=== PATIENT | female | born 1995 | race Caucasian/White ===

== ENCOUNTER 2018-12-12 18:28 | Emergency (ER) | payer OTHER ==
[~2018-12-12] VITALS: Ht 154.9 cm; Wt 81.6 kg
[2018-12-12] MEDS ORDERED: HYDROcodone/APAP 7.5 MG/325 MG (LORTAB, LORCET PLUS) TABLET PO ONE (19:15)
--- NOTE | 2018-12-12 19:52 | Diagnostic Imaging Report ---
INDICATION: Injury, elbow pain. EXAMINATION: Right elbow at 7:05 p.m. Three views were obtained. COMPARISON: There are no prior studies available for comparison. FINDINGS: There is a transverse slightly displaced fracture of the proximal radius. The distal fracture fragment is displaced medially by half the width of the radial shaft. There is also an orthopedic plate and screw fixation device along the medial aspect of the distal fracture fragment. This is a sequela of prior trauma. There are also transverse essentially nondisplaced fractures of the proximal ulna. There is also an orthopedic plate and screw fixation device along the posterior medial aspect of the proximal/mid ulna. There is a linear lucency along the lateral cortex of the distal humerus on the AP view. This is not seen on the other views and unlikely to represent a fracture. The posterior fat-pad of the elbow joint is not elevated. IMPRESSION: 1. There are fractures of the proximal radius and ulna. The fractures are proximal to the orthopedic hardware involving the radius and ulna from the previous traumatic episode. 2. There is no acute bony abnormality identified otherwise. Dictated by: Dictated on workstation # [id number]
[2018-12-12] MEDS ORDERED: RX-HYDROCODONE/APAP 5/325 MG #4 TAB PK PO PRN (20:15)
[2018-12-12] MEDS ORDERED: ACHD5005 PO (20:27)
--- NOTE | 2018-12-12 20:27 | ED Upper Extremity ---
General Chief Complaint: Upper Extremity Stated Complaint: RT FORARM PAIN Nursing Triage Note: PT REPORTS WAS WALKING AROUND A KIDDIE ET TRIPPED WHILE GETTING OUT FALLING ONTO RT ARM. C/O PAIN BELOW ELBOW Nursing Sepsis Screen: No Definite Risk Source: patient Exam Limitations: no limitations History of Present Illness Date Seen by Provider: Dec 12, 2018 Time Seen by Provider: 18:49 Initial Comments 23-year-old female who presents to the emergency room with complaints of right elbow pain after falling onto the right arm after tripping in a kiddie pool. She reports history of fractures to the radius and ulnar of the right upper extremity in the past. Onset: just prior to arrival Pain/Injury Location: right forearm Method of Injury: fell Modifying Factors: Worse With Movement Allergies and Home Medications Allergies Coded Allergies: No Known Drug Allergies (Unverified , 12/12/18) Home Medications Hydrocodone Bit/Acetaminophen 1 Tab Tab, 1-2 EACH PO Q6H PRN for PAIN-MODERATE Prescribed by: MARCIA SCHAFER on 12/12/182026 Patient Home Medication List Home Medication List Reviewed: Yes Review of Systems Constitutional: see HPI; No chills, No fever Musculoskeletal: see HPI, joint pain (right arm pain) All Other Systems Reviewed Negative Unless Noted: Yes Past Mmwjugt-Fbcdmw-Feoxcr Hx Past Med/Social Hx: Reviewed Nursing Past Med/Soc Hx Patient Social History Alcohol Use: Occasionally Uses Recreational Drug Use: No Smoking Status: Never a Smoker Recent Foreign Travel: No Contact w/Someone Who Travel: No Recent Infectious Disease Expo: No Past Medical History Surgeries: Yes (RT ARM REPAIR) Cardiac: No Neurological: No Genitourinary: No Gastrointestinal: No Musculoskeletal: Yes Fractures Endocrine: No HEENT: No Cancer: No Psychosocial: No Integumentary: No Family Medical History Reviewed Nursing Family Hx Physical Exam Vital Signs Vital Signs - First Documented 12/12/18 12/12/18 18:39 20:46 Temp 97.3 Pulse 58 Resp 20 B/P (MAP) 129/75 (93) Pulse Ox 99 O2 Delivery Room Air Capillary Refill : Less Than 3 Seconds Height, Weight, BMI Height: 5'1.00" Weight: 180lbs. oz. 81.273251ln; BMI Method:Stated General Appearance: WD/WN, no apparent distress Cardiovascular: normal peripheral pulses, regular rate, rhythm, no edema, no gallop, no JVD, no murmur Respiratory: chest non-tender, lungs clear, normal breath sounds, no respiratory distress, no accessory muscle use Elbow/Forearm: Right, pain, soft tissue tenderness, swelling Neurologic/Tendon: normal sensation, normal motor functions, normal tendon functions, responds to pain, no evidence tendon injury Neurologic/Psychiatric: alert, normal mood/affect, oriented x 3 Skin: normal color, warm/dry Progress/Results/Core Measures Results/Orders My Orders Orders - MARCIA SCHAFER Elbow, Right, 3 Views (12/12/18 18:49) Hydrocodone/Apap 7.5/325 Tab (Lortab 7. (12/12/18 19:15) Rx-Hydrocodone/Apap 5-325 Mg (Rx-Vicodin (12/12/18 20:15) Medications Given in ED Vital Signs/I&O Blood Pressure Mean: 93 Progress Progress Note : Time: 20:20 Progress Note I have seen and evaluated the patient. I've informed her of her imaging studies. I have discussed the case with Dr. Moody orthopedic surgeon and he recommends pacing the patient in a sugar tong splint and having her follow up with orthopedic surgery. The patient is from [place] and wishes to return back home to follow-up with known orthopedic surgeon. She was placed in requested splint and agrees with plan of care, plans for discharge, return precautions were given. Imaging studies were sent with the patient. Departure Impression Primary Impression: Fracture, proximal radius or ulna, closed Disposition: 01 HOME, SELF-CARE Condition: Stable/Unchanged Departure-Patient Inst. Decision time for Depature: 20:23 Referrals: NO,LOCAL PHYSICIAN (PCP/Family) Primary Care Physician Patient Instructions: Forearm Fracture (DC) Add. Discharge Instructions: Take medications as directed. Ice to the sore areas at 20 minute intervals. Wear the sling and splint until follow-up with an orthopedic surgeon of your choosing back in [place]. Call tomorrow morning to schedule an appointment time. Elevate the extremity as much as possible. Return back to the emergency room for worsening symptoms or concerns as needed. All discharge instructions reviewed with patient and/or family. Voiced understanding. Scripts Hydrocodone Bit/Acetaminophen (Hydrocodone/Acetaminophen 5/325mg Tablet) 1 Tab Tab 1-2 EACH PO Q6H PRN for PAIN-MODERATE MDD 10 for 3 Days, #20 TAB 0 Refills Prov: MARCIA SCHAFER 12/12/18 MARCIA SCHAFER Dec 12, 2018 20:27
[2018-12-12 20:46] VITALS: BP 131/71
== END 2018-12-12 20:48 | disposition home or self-care (01) ==
LOC: ER 18:31
DX: S52.101A Unspecified fracture of upper end of right radius, initial encounter for closed fracture (principal); S52.001A Unspecified fracture of upper end of right ulna, initial encounter for closed fracture; W01.0XXA Fall on same level from slipping, tripping and stumbling without subsequent striking against object, initial encounter; Y92.34 Swimming pool (public) as the place of occurrence of the external cause
CPT/HCPCS: 29105; 73080